=== PATIENT | female | born 1945 | race Caucasian/White ===

== ENCOUNTER → 2016-10-08 | Outpatient (CLI) | payer OTHER ==
--- NOTE | 2016-10-08 14:14 | MA ---
Screening Digital Mammogram With iCAD Analysis Clinical Indications: Routine screening. Technique: Standard cephalocaudal projections are obtained. Digital breast tomosynthesis was performe d in the MLO projection with reconstruction at 1.0 mm slice thickness and composite MLO views reconst ructed. This examination is processed by the iCAD computer aided detection system. Comparison: May 2015, May 2014, April 2013, August 2011, July 2010, June 2009, May 2008. Breast density: Type B; Scattered fibroglandular densities. Findings: CAD was reviewed. No masses, suspicious calcifications or secondary signs of malignancy are seen. There has been no significant change in the appearance of either breast. Impression: Negative mammogram. BI-RADS 1. Recommendation: Routine mammographic screening in one year as long as physical examination is [facility]ativ [facility]. Negative mammography should not preclude additional workup of a clinically suspicious finding. The patient's information is entered into a reminder system with a target due date for her next mammo gram.
== END ==
LOC: FIMAGING 13:05
DX: Z12.31 Encounter for screening mammogram for malignant neoplasm of breast (principal)
CPT/HCPCS: G0202

== ENCOUNTER → 2016-10-10 | Outpatient (CLI) | payer OTHER ==
--- NOTE | 2016-10-10 15:26 | MR ---
MRI of the Brain (Without Contrast) at 1430 hours Clinical Indication: Previous brainstem infarct. I 63.9. Forgetfulness. COMPARISON: MRI April 2016 Technique: T1-weighted images were acquired axially and sagittally from the foramen magnum to the ve rtex. Axial fast inversion recovery, fast T2-weighted, and diffusion-weighted axial images were obta ined without contrast. Findings: In the left side of the esperanza there is an area of cystic gliosis measuring 9 x 6 mm corresp onding to the previous infarct from April 2016. Today's study demonstrates no evidence of acute infa rct, acute hemorrhage or mass effect. The ventricles, cisterns, and sulci are widened consistent with atrophy. No hydrocephalus, midline shift, herniation, or epidural/subdural hematomas. No intracrania l hemorrhage or masses. Diffusion weighted sequence demonstrates no acute infarct. Cerebellar tonsils are in normal position. Pituitary gland is normal in size. Normal signal flow-void in the superior s agittal sinus, basilar artery, and bilateral internal carotid arteries indicating patency. Paranasal sinuses and mastoid air cells are clear. Scattered hyperintense T2/FLAIR signal foci throughout bilat eral cerebral white matter. Impression: 1. 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 2. No acute infarct, hemorrhage, hydrocephalus, mass effect, or herniation. 3. Multiple nonspecific hyperintense T2/FLAIR signal abnormalities in the white matter of bilateral c erebral hemispheres. Differential diagnosis includes moderate microvascular ischemic gliosis, post-in fectious/post-inflammatory sequela.
== END ==
LOC: FIMAGING 13:42
PROVIDERS: ATTEND Psychiatry & Neurology Neurology
DX: I63.9 Cerebral infarction, unspecified (principal)

== ENCOUNTER → 2016-11-07 | Outpatient (CLI) | payer OTHER | LOC: FCPNEURO 21:30 | PROVIDERS: ATTEND Student in an Organized Health Care Education/Training Program | DX: G47.33 Obstructive sleep apnea (adult) (pediatric) (principal) ==

== ENCOUNTER 2017-08-28 14:01 | Emergency (ER) | payer OTHER ==
--- NOTE | 2017-08-28 15:23 | EDPHY ---
H & P Time Seen by Provider: 08/28/17 15:18 HPI/ROS: CHIEF COMPLAINT: Abdominal pain. HISTORY OF PRESENT ILLNESS: This patient is a 72 y/o female with history of GERD and ulcers complaining of generalized abdominal pain and an episode of hematochezia onset this morning. She is followed by the pain clinic for spinal stenosis, fibromyalgia, and arthritis and switched from oxycodone to Nucynta ten days ago. She also discontinued omeprazole 10 days ago. Yesterday, she had frequent diarrhea throughout the day with associated cramping and diffuse abdominal pain which felt similar to prior ulcer symptoms. This morning, she had an episode of streaks of "raspberry red" blood in her diarrhea and the abd cramps became increasingly painful. She had not had another bowel movement since. She has not had anything to eat today due to nausea and abdominal pain. She called her PCP' s office, recommended she present to the emergency department. The patient denies fever, vomiting, melena, dysuria, hematuria, or other associated symptoms. She takes aspirin daily. REVIEW OF SYSTEMS: A 10 point review of systems was performed and is negative with the exception of the elements mentioned in the history of present illness. Past Medical/Surgical History: 1. Fibromyalgia 2. Arthritis 3. Spinal stenosis 4. Ulcer 5. GERD 6. CVA Social History: Single. Lives in [place]. Retired. Former smoker. Smoking Status: Former smoker Physical Exam: General Appearance: Alert, pleasant, talkative Eyes: Pupils equal and round, no conjunctival pallor ENT, Mouth: Mucous membranes moist Neck: Normal inspection Respiratory: Lungs are clear to auscultation Cardiovascular: Regular rate and rhythm Gastrointestinal: Abdomen is soft and non-tender Neurological: A&O, nonfocal, normal gait Skin: Warm and dry Extremities: Nontender, no pedal edema Psychiatric: Mood and affect normal Constitutional: Initial Vital Signs Temperature (C) 37.1 C 08/28/17 14:04 Heart Rate 87 08/28/17 14:04 Respiratory Rate 18 08/28/17 14:04 Blood Pressure 148/109 H 08/28/17 14:04 O2 Sat (%) 93 08/28/17 14:04 O2 Delivery Mode Room Air Allergies/Adverse Reactions: Penicillins Allergy (Severe, Verified 04/27/16 03:35) Swelling/neck,face,throat latex [Latex] Allergy (Mild, Verified 03/19/13 16:43) Rash meperidine HCl [From Demerol] Allergy (Unknown, Verified 03/19/13 16:43) Anxiety bacitracin [From Neosporin ([id number])] Allergy (Verified 06/06/14 14:38) bacitracin zinc [From Neosporin ([id number])] Allergy (Verified 06/06/14 14: 38) codeine [Codeine] Allergy (Verified 03/19/13 16:43) Unknown neomycin sulfate [From Neosporin ([id number])] Allergy (Verified 06/06/14 14: 38) polymyxin B [From Neosporin ([id number])] Allergy (Verified 06/06/14 14:38) TAPE Allergy (Mild, Uncoded 03/19/13 16:43) Rash Home Medications: Medication Instructions Recorded DULoxetine [Cymbalta 60 MG (*)] 60 mg PO DAILY 01/20/11 Acetaminophen [Tylenol 325mg (*)] 1,300 mg PO DAILY PRN 02/03/13 Acetaminophen [Tylenol 325mg (*)] 650 mg PO HS PRN 02/03/13 Multivitamins [Multivitamin (*)] 1 each PO DAILY 02/03/13 Herbals/Supplements -Info Only 1 ea PO DAILY 04/27/16 Hydrocodone/APAP 5/325 [Humphrey 1 - 2 each PO Q2D PRN 04/27/16 5/325 (*)] Levothyroxine [Synthroid 125 mcg 125 mcg PO DAILY06 04/27/16 (*)] Omeprazole 40 mg PO DAILY 04/27/16 Tapentadol HCl [Nucynta ER] 100 mg PO DAILY 04/27/16 Tizanidine HCl [Zanaflex] 4 - 8 mg PO HS PRN 04/27/16 Zolpidem Tartrate [Zolpidem 6.25 mg PO HS 04/27/16 Tartrate ER] Aspirin [Aspirin 325 mg (*)] 325 mg PO DAILY #30 tab 04/28/16 Atorvastatin Calcium [Lipitor 10 10 mg PO DAILY #30 tab 04/28/16 mg (*)] Ondansetron Odt [Zofran Odt 4 mg 4 mg PO Q4 PRN #6 tab 08/28/17 (*)] Medical Decision Making ED Course/Re-evaluation: 72 y/o female presents following one episode of minor hematochezia with associated abdominal cramping and diarrhea. Her abdomen is soft and nontender on exam. IV established. Plan to administer 1L IV NS, 40mg IV Protonix, and 4mg IV Zofran for symptom relief. She does not think she will be able to provide a stool sample here in the emergency department. 4:30 p.m. Reassessed. Patient feels much better and wants to go home. Abdomen remained soft and nontender. No episodes of diarrhea in the emergency department. No evidence of severe hemorrhage. Warning signs discussed. Differential Diagnosis: Differential diagnosis includes though it is not limited to appendicitis, cholecystitis, diverticulitis, pyelonephritis, bowel perforation, small bowel obstruction. - Data Points Laboratory Results: Laboratory Results 08/28/17 15:07 08/28/17 15:07 Medications Given: Discontinued Medications Sodium Chloride (Ns) 1,000 mls @ 0 mls/hr IV EDNOW ONE; Wide Open PRN Reason: Protocol Stop: 08/28/17 15:37 Last Admin: 08/28/17 15:47 Dose: 1,000 mls Ondansetron HCl (Zofran) 4 mg IVP EDNOW ONE Stop: 08/28/17 15:37 Last Admin: 08/28/17 15:48 Dose: 4 mg Pantoprazole Sodium (Protonix) 40 mg IVP EDNOW ONE Stop: 08/28/17 15:37 Last Admin: 08/28/17 15:48 Dose: 40 mg Departure - Departure Disposition: Home, Routine, Self-Care Clinical Impression: Diarrhea Qualifiers: Diarrhea type: presumed infectious Qualified Code(s): A09 - Infectious gastroenteritis and colitis, unspecified Abdominal pain Qualifiers: Abdominal location: generalized Qualified Code(s): R10.84 - Generalized abdominal pain Condition: Good Instructions: Acute Diarrhea (ED), Acute Abdominal Pain (ED) Additional Instructions: 1. Follow up with your primary care provider on Thursday if symptoms persist. 2. I recommend you follow a clear liquid diet for the next 12-24 hours as we discussed. After this, you may introduce bland foods as tolerated. 3. Resume taking omeprazole. 4. Take Zofran as prescribed as needed for nausea relief. 5. Return to the emergency department for recurrent episodes of blood in your stool, increasing abdominal pain, increasing blood in stool, dizziness, uncontrollable vomiting, fever, or other worsening of condition. Referrals: Olivia Odell MD [Primary Care Provider] - As per Instructions Prescriptions: Ondansetron Odt [Zofran Odt 4 mg (*)] 4 mg PO Q4 PRN #6 tab PRN Reason: Nausea Report Scribed for: Peace Lucero Report Scribed by: Karen Card Date of Report: 08/28/17 Time of Report: 15:23 Physician Review and Approval Statement: 08/28/17 15:23 Portions of this note were transcribed by a medical laboratory technical officer. I personally performed a history, physical exam, medical decision making, and confirmed accuracy of information the transcribed note.
[2017-08-28 15:34] LABS: % IMMATURE GRANULYOCYTES 0.4 % (0.0-1.1); ABSOLUTE IMMATURE GRANULOCYTES 0.03 10^3/uL (0.00-0.10); ADD DIFF? NO; ADD MORPH? NO; ADD SCAN? NO; ATYPICAL LYMPHOCYTE FLAG 0 (0-99); FRAGMENT RBC FLAG 0 (0-99); HEMATOCRIT 44.2 % (38.0-47.0); HEMOGLOBIN 15.3 g/dL (12.6-16.3); LEFT SHIFT FLG 0 (0-99); LIPEMIA HEMOLYSIS FLAG 90 (0-99); MEAN CELL HEMOGLOBIN 32.9 pg (27.9-34.1); MEAN CELL HEMOGLOBIN CONCENTR. 34.6 g/dL (32.4-36.7); MEAN CELL VOLUME 95.1 fL (81.5-99.8); MEAN PLATELET VOLUME 8.9 fL (8.7-11.7); PLATELET CLUMPS FLAG 0 (0-99); PLATELET COUNT 267 10^3/uL (150-400); RED BLOOD CELL COUNT 4.65 10^6/uL (4.18-5.33)
[2017-08-28 15:36] LABS: ANION GAP 11 mEq/L (8-16); CARBON DIOXIDE 27 mEq/l (22-31); CHLORIDE 105 mEq/L (97-110); CREATININE 0.8 mg/dL (0.6-1.0); GLOMERULAR FILTRATION RATE > 60; GLUCOSE 87 mg/dL (70-100); POTASSIUM 4.3 mEq/L (3.5-5.2); SODIUM 143 mEq/L (134-144)
[2017-08-28] MEDS ORDERED: ONDANSETRON 4 MG/2 ML VIAL IVP ONE (15:36)
[2017-08-28] MEDS ORDERED: PANTOPRAZOLE SODIUM 40 MG VIAL IVP ONE (15:36)
[2017-08-28] MEDS ORDERED: NS 1,000 ML IV ONE (15:36)
[2017-08-28 17:10] VITALS: BP 136/92; PULSE 85; RESP 16; TEMP 98.2; O2SAT 95
== END 2017-08-28 17:04 | disposition home or self-care (01) ==
DX: A09 Infectious gastroenteritis and colitis, unspecified (principal); E86.9 Volume depletion, unspecified; Z79.82 Long term (current) use of aspirin; Z86.73 Personal history of transient ischemic attack (TIA), and cerebral infarction without residual deficits; Z87.891 Personal history of nicotine dependence; Z91.040 Latex allergy status
CPT/HCPCS: 96361; 96374; 96375; 99284; J2405

== ENCOUNTER → 2017-10-21 | Outpatient (CLI) | payer OTHER | LOC: FIMAGING 14:18 | PROVIDERS: ATTEND Internal Medicine | DX: Z12.31 Encounter for screening mammogram for malignant neoplasm of breast (principal) ==

== ENCOUNTER → 2018-08-06 | Outpatient (CLI) | payer OTHER | LOC: FIMAGING 17:00 | PROVIDERS: ATTEND Internal Medicine | DX: J40 Bronchitis, not specified as acute or chronic (principal) ==

== ENCOUNTER → 2018-12-14 | Outpatient (CLI) | payer OTHER | LOC: FIMAGING 13:54 | PROVIDERS: ATTEND Internal Medicine | DX: Z12.31 Encounter for screening mammogram for malignant neoplasm of breast (principal) ==